=== PATIENT | female | born 1945 | race Caucasian/White ===

== ENCOUNTER → 2017-09-18 | Outpatient (CLI) | payer MEDICARE ==
[~2017-09-18] MED LIST: BOSWELLIA PO; CALC1TAB78 PO; CHOL20002 PO; CINN500C2 PO; ESCI20TA10 PO; FE F1CAP8 PO; HYDR12.58 PO; IRON PO; LOSA25TA5 PO; MULT-224 PO; OMEP20TA62 PO; OXYB15TA PO; RED600CA2 PO; SOLI5TAB2 PO; TURM1POW PO; UBID100C19 PO; VITA1TAB19 PO; VITAMIN E PO; [UNRECOGNIZED DRUG - CODE] PO
[2017-09-18 14:12] LABS: BASOPHILS # (AUTO) 0.04 x10^3/uL (0-0.1); BASOPHILS % (AUTO) 1 % (0-1); EOSINOPHILS # (AUTO) 0.11 x10^3/uL (0-0.4); EOSINOPHILS % (AUTO) 2 % (1-7); LYMPHOCYTES # (AUTO) 1.58 x10^3/uL (1-3.4); LYMPHOCYTES % (AUTO) 21 % (22-44); MD NO; MEAN CORPUSCULAR HEMOGLOBIN 31.7 pg (27.0-34.8); MEAN CORPUSCULAR HGB CONC 32.9 g/dL (32.4-35.8); MEAN CORPUSCULAR VOLUME 96.5 fL (80-100); MEAN PLATELET VOLUME 9.4 fL (7.4-10.4); MONOCYTES # (AUTO) 0.51 x10^3/uL (0.2-0.8); MONOCYTES % (AUTO) 7 % (2-9); NEUTROPHILS # (AUTO) 5.43 x10^3/uL (1.8-6.8); NEUTROPHILS % (AUTO) 71 % (42-75); PLATELET COUNT 266 x10^3/uL (130-400); RED BLOOD COUNT 3.99 x10^6/uL (3.82-5.3)
[2017-09-18 14:26] LABS: ALANINE AMINOTRANSFERASE 18 U/L (12-78); ALBUMIN 3.9 g/dL (3.4-5.0); ANION GAP 8 mmol/L (5-15); CALCIUM 8.6 mg/dL (8.5-10.1); CHLORIDE 101 mmol/L (98-107)
[2017-09-18 14:28] LABS: ALKALINE PHOSPHATASE 81 U/L (45-117); BILIRUBIN,TOTAL 0.4 mg/dL (0.2-1.0); CREATININE 0.83 mg/dL (0.55-1.02); TOTAL PROTEIN 8.2 g/dL (6.4-8.2)
[2017-09-18 14:37] LABS: HEMOGLOBIN A1C 5.6 % (4.2-6.3)
[2017-09-18 14:51] LABS: INTERNATIONAL NORMALIZED RATIO 0.96 (0.93-1.1); PROTHROMBIN TIME 9.9 Seconds (9.6-11.5)
[2017-09-18 15:07] LABS: MICROSCOPIC NOT IND
[2017-09-18 15:10] LABS: CULTURE INDICATED? NO
== END ==
LOC: STAR 12:40
PROVIDERS: ATTEND Orthopaedic Surgery
DX: M16.51 Unilateral post-traumatic osteoarthritis, right hip (principal); I10 Essential (primary) hypertension; Z79.899 Other long term (current) drug therapy
CPT/HCPCS: 36415; 80053; 81003; 83036; 85025; 85610; 85730; 87081; 87147; 87806; 93005; G0475

== ENCOUNTER 2017-09-29 09:14 | Inpatient (IN) | payer MEDICARE ==
[~2017-09-29] VITALS: Ht 162.6 cm; Wt 88.4 kg
[2017-09-29] MEDS ORDERED: LACTATED RINGERS 1,000 ML IV SCH (09:50)
[2017-09-29] MEDS ORDERED: VANCOMYCIN PER PHARMACY MC ONE (09:53)
[2017-09-29] MEDS ORDERED: MUPI22OI2 NAS (09:57)
[2017-09-29] MEDS ORDERED: LIDOCAINE-MPF 1%, 2ML INFIL ONE (10:00)
[2017-09-29] MEDS ORDERED: ACETAMINOPHEN 500 MG TABLET PO ONE (10:00)
[2017-09-29] MEDS ORDERED: GABAPENTIN 300 MG CAPSULE PO ONE (10:00)
[2017-09-29] MEDS ORDERED: OxyconTIN ER 10 MG TAB.ER PO ONE (10:00)
[2017-09-29] MEDS ORDERED: MIDAZOLAM 1 MG/ML, 2ML ONE (10:02)
[2017-09-29] MEDS ORDERED: FENTANYL PF 250 MCG/5ML ONE (10:02)
[2017-09-29] MEDS ORDERED: LIDOCAINE-MPF 2% ,5ML ONE ×3 (10:05)
[2017-09-29] MEDS ORDERED: DEXAMETHASONE 4 MG/ML, 1ML ONE (10:05)
[2017-09-29] MEDS ORDERED: PROPOFOL 10 MG/ML, 20ML ONE (10:05)
[2017-09-29] MEDS ORDERED: SUCCINYLCHOLINE 20 MG/ML, 10ML ONE (10:05)
[2017-09-29] MEDS ORDERED: NEOSTIGMINE 1 MG/ML, 10ML ONE (10:05)
[2017-09-29] MEDS ORDERED: GLYCOPYRROLATE 0.2MG/1ML, 5ML ONE (10:05)
[2017-09-29] MEDS ORDERED: CEFAZOLIN 1,000 MG ONE (10:05)
[2017-09-29] MEDS ORDERED: ONDANSETRON 2MG/ML, 2ML ONE (10:05)
[2017-09-29] MEDS ORDERED: LIDOCAINE 4%, 4 ML SYR/CANN TP ONE ×2 (10:07→11:38)
[2017-09-29] MEDS ORDERED: VANCOMYCIN 1,600 MG in SODIUM CHLORIDE 0.9% 250 ML IV ONE (10:30)
[2017-09-29] MEDS ORDERED: KETOROLAC 60 MG/2 ML ONE (10:35)
[2017-09-29] MEDS ORDERED: TRANEXAMIC ACID 100 MG/ML, 10ML ONE ×4 (10:36)
[2017-09-29] MEDS ORDERED: EPINEPHRINE 1 MG/ML, 1ML ONE (10:36)
[2017-09-29] MEDS ORDERED: ROPIvacaine/PF 0.2%, 20 ML ONE (10:36)
[2017-09-29] MEDS ORDERED: ONDANSETRON 4 MG TABLET PO PRN (11:30)
[2017-09-29] MEDS ORDERED: MAGNESIUM HYDROXIDE 8%, 30ML UDC PO PRN (11:30)
[2017-09-29] MEDS ORDERED: HYDROmorphone 2 MG/ML, 1ML IV PRN (11:30)
[2017-09-29] MEDS ORDERED: ONDANSETRON 2MG/ML, 2ML IV PRN (11:30)
[2017-09-29] MEDS ORDERED: SENNA/DOCUSATE TABLET PO PRN (11:30)
[2017-09-29] MEDS ORDERED: DIPHENHYDRAMINE 25 MG CAPSULE PO PRN (11:30)
[2017-09-29] MEDS ORDERED: ACETAMINOPHEN 650 MG/20.3 ML UDC PO PRN (11:30)
[2017-09-29] MEDS ORDERED: DIAZEPAM 5 MG TABLET PO PRN (11:30)
[2017-09-29] MEDS ORDERED: ALUMINUM/MAG/SIMETHICONE 30 ML UDC PO PRN (11:30)
[2017-09-29] MEDS ORDERED: ROCURONIUM 10 MG/ML,10ML ONE (11:38)
[2017-09-29] MEDS ORDERED: FENTANYL PF 100 MCG/2ML IV PRN (12:00)
[2017-09-29] MEDS ORDERED: LABETALOL 5MG/ML, 20ML IV PRN (12:00)
[2017-09-29] MEDS ORDERED: DIAZEPAM 5 MG/ML, 2ML IVPush PRN (12:00)
[2017-09-29] MEDS ORDERED: OXYcodone 5 MG/5 ML ORAL.SOL UDC PO PRN (12:00)
[2017-09-29] MEDS ORDERED: hydrALAzine 20 MG/ML, 1ML IV PRN (12:00)
[2017-09-29] MEDS ORDERED: ONDANSETRON 2MG/ML, 2ML IVPush PRN (12:00)
[2017-09-29] MEDS ORDERED: PROMETHAZINE 25 MG/ML, 1ML IV PRN (12:00)
[2017-09-29] MEDS ORDERED: MEPERIDINE/PF 25MG/0.5ML IVPush PRN (12:00)
[2017-09-29] MEDS ORDERED: TRANEXAMIC ACID 1,000 MG in SODIUM CHLORIDE 0.9% 100 ML IVPB ONE (13:00)
[2017-09-29] MEDS ORDERED: HYDROmorphone 2 MG/ML, 1ML ONE (13:32)
[2017-09-29] MEDS ORDERED: LABETALOL 5MG/ML, 20ML ONE (13:46)
[2017-09-29] MEDS: ASPIRIN 81 MG TABLET EC PO SCH (18:08)
[2017-09-29] MEDS: CEFAZOLIN PMX 1GM/50ML 50 ML IVPB SCH (18:09)
[2017-09-29] MEDS: D5%-0.45NACL+KCL 20MEQ 1,000 ML IV SCH (18:58)
[2017-09-29] MEDS: DOCUSATE 100 MG CAPSULE PO SCH (20:33)
[2017-09-29] MEDS: OXYBUTYNIN CHLORIDE 5 MG TABLET PO SCH (20:33)
[2017-09-29] MEDS: OXYcodone IR 5MG TABLET PO PRN (20:35)
[2017-09-29 20:41] VITALS: BP 120/71
[2017-09-29] MEDS ORDERED: CITALOPRAM 20 MG TABLET PO SCH (21:00)
[2017-09-30] MEDS: OXYcodone IR 5MG TABLET PO PRN ×4 (00:28→12:56)
[2017-09-30 00:37] VITALS: BP 128/64
[2017-09-30] MEDS: CEFAZOLIN PMX 1GM/50ML 50 ML IVPB SCH (01:59)
[2017-09-30 04:00] VITALS: BP 116/68
[2017-09-30] MEDS: D5%-0.45NACL+KCL 20MEQ 1,000 ML IV SCH (05:30)
[2017-09-30] MEDS: ASPIRIN 81 MG TABLET EC PO SCH (05:44)
[2017-09-30] MEDS ORDERED: DEXAMETHASONE 4 MG/ML, 1ML IVPush SCH (06:00)
[2017-09-30] MEDS ORDERED: OMEPRAZOLE 20 MG CAPSULE.DR PO SCH (07:30)
[2017-09-30 07:55] VITALS: BP 110/69
[2017-09-30] MEDS: OXYBUTYNIN CHLORIDE 5 MG TABLET PO SCH (08:46)
[2017-09-30] MEDS: DOCUSATE 100 MG CAPSULE PO SCH (08:47)
[2017-09-30] MEDS ORDERED: LOSARTAN 25MG TABLET PO SCH (09:00)
[2017-09-30] MEDS ORDERED: HYDROCHLOROTHIAZIDE 12.5 MG CAPSULE PO SCH (09:00)
[2017-09-30] MEDS ORDERED: TAMSULOSIN 0.4 MG CAP.ER.24H PO SCH (09:00)
[2017-09-30 10:39] VITALS: BP 163/87
[2017-09-30] MEDS ORDERED: KETOROLAC 30 MG/1 ML IV SCH (11:30)
[2017-09-30 12:45] VITALS: BP 121/72
== END 2017-09-30 14:03 | disposition home or self-care (01) | DRG 470 ==
LOC: ORIP 09:14 → 4NOR 15:12 → DCLOUNGE 09-30 13:46
PROVIDERS: ADMIT Orthopaedic Surgery; ATTEND Orthopaedic Surgery
PROC: 0SR906Z Replacement of Right Hip Joint with Oxidized Zirconium on Polyethylene Synthetic Substitute, Open Approach (ICD-10-PCS; principal; 2017-09-29 11:30)
DX: M16.11 Unilateral primary osteoarthritis, right hip (principal); K21.9 Gastro-esophageal reflux disease without esophagitis; Z87.11 Personal history of peptic ulcer disease
CPT/HCPCS: 36415; 72170; 85014; 85018; 86850; 86900; C1713; J0171; J0690; J1100; J1170; J1885; J2250; J2405; J2704; J2710; J2795; J3010; J3370; J3490; C1776; J0330; J3480; J7050; J7120